=== PATIENT | male | born 1935 ===

== ENCOUNTER 2020-09-28 19:32 | Inpatient (IN) ==
[2020-09-28] MEDS ORDERED: ONDANSETRON 4 MG/2 ML VIAL IV PRN (21:56)
[2020-09-28] MEDS ORDERED: MORPHINE 2 MG/1 ML SYRINGE IV PRN (21:56)
[2020-09-28] MEDS ORDERED: ACETAMINOPHEN 325 MG TABLET PO PRN (21:56)
[2020-09-28] MEDS: LACTATED RINGERS 1,000 ML IV SCH (23:00)
[2020-09-29] MEDS: PIPERACILLIN/TAZOBACTAM 3,375 MG in SODIUM CHLORIDE 0.9% 100 ML IV SCH ×3 (02:59→17:11)
[2020-09-29 07:45] LABS: Basophils # 0.1 10*3/uL (0.0-0.2); Basophils % 0.3 % (0.0-0.8); Eosinophils # 0.2 10*3/uL (0.0-0.87); Eosinophils % 1.3 % (0.00-10.9); Hematocrit 38.4 VOL% (42.0-52.0); Hemoglobin 12.7 GM/DL (14.0-18.0); Immature Granulocytes % 0.8 %; Immature Granulocytes Absolute 0.12 #; Mean Corpuscular HGB Conc 33.1 GM/DL (32-36); Mean Corpuscular Volume 93.4 FL (87-102); Mean Platelet Volume 10.1 FL (9.6-12.0); Monocytes % 9.1 % (1.7-12.7); Neutrophils % 82.5 % (38.7-73.9); Platelet Count 292 T/CUMM (130-400); Red Blood Count 4.11 MC/CUMM (3.8-5.5); White Blood Count 15.7 T/CUMM (4-12)
[2020-09-29 08:11] LABS: Calcium 8.2 MG/DL (8.5-10.1); Osmolality,Calculated 280.3 MOS/KG (273-304); Potassium 2.9 MMOL/L (3.5-5.1)
[2020-09-29] MEDS ORDERED: MAGNESIUM CITRATE 300 ML BOTTLE PO ONE (08:15)
[2020-09-29] MEDS ORDERED: BISACODYL 10 MG SUPP RECTAL ONE (08:15)
[2020-09-29] MEDS: LACTATED RINGERS 1,000 ML IV SCH ×2 (10:08→14:02)
[2020-09-29] MEDS: PANTOPRAZOLE 40 MG TABLET PO SCH (10:22)
[2020-09-29] MEDS: POTASSIUM CHLORIDE RIDER 10 MEQ/100 ML PREMIX IV SCH ×5 (10:50→21:10)
[2020-09-29] MEDS ORDERED: POTASSIUM CHLORIDE RIDER 10 MEQ/100 ML PREMIX IV SCH (20:00)
[2020-09-30] MEDS: COLLAGENASE OINT 30 GM TUBE TOP SCH ×2 (01:31→09:00)
[2020-09-30] MEDS: PIPERACILLIN/TAZOBACTAM 3,375 MG in SODIUM CHLORIDE 0.9% 100 ML IV SCH ×3 (01:31→18:32)
[2020-09-30 07:35] LABS: Basophils % 0.3 % (0.0-0.8); Eosinophils # 0.2 10*3/uL (0.0-0.87); Eosinophils % 1.7 % (0.00-10.9); Hematocrit 36.4 VOL% (42.0-52.0); Hemoglobin 11.5 GM/DL (14.0-18.0); Immature Granulocytes % 0.6 %; Immature Granulocytes Absolute 0.09 #; Lymphocytes # 0.8 10*3/uL (1.4-4.0); Lymphocytes % 5.8 % (21.2-54.2); Mean Corpuscular HGB Conc 31.6 GM/DL (32-36); Mean Corpuscular Volume 94.5 FL (87-102); Mean Platelet Volume 10.1 FL (9.6-12.0); Monocytes % 8.5 % (1.7-12.7); Neutrophils % 83.1 % (38.7-73.9); Platelet Count 297 T/CUMM (130-400); Red Blood Count 3.85 MC/CUMM (3.8-5.5); Red Cell Distribution Width 13.2 % (9.3-17.3); White Blood Count 13.9 T/CUMM (4-12)
[2020-09-30 07:54] LABS: Calcium 8.1 MG/DL (8.5-10.1); Osmolality,Calculated 276.5 MOS/KG (273-304)
[2020-09-30] MEDS: LACTATED RINGERS 1,000 ML IV SCH ×4 (08:00→23:50)
[2020-09-30] MEDS ORDERED: MORPHINE 2 MG/1 ML SYRINGE IV PRN ×2 (08:47)
[2020-09-30] MEDS ORDERED: POTASSIUM CHLORIDE 20 MEQ TABLET PO ONE (09:00)
[2020-09-30] MEDS: PANTOPRAZOLE 40 MG TABLET PO SCH (09:30)
[2020-10-01] MEDS: PIPERACILLIN/TAZOBACTAM 3,375 MG in SODIUM CHLORIDE 0.9% 100 ML IV SCH ×3 (01:16→17:10)
[2020-10-01 06:10] LABS: Basophils # 0.1 10*3/uL (0.0-0.2); Basophils % 0.5 % (0.0-0.8); Eosinophils # 0.4 10*3/uL (0.0-0.87); Eosinophils % 3.6 % (0.00-10.9); Hematocrit 38.8 VOL% (42.0-52.0); Hemoglobin 12.3 GM/DL (14.0-18.0); Immature Granulocytes % 0.8 %; Immature Granulocytes Absolute 0.08 #; Lymphocytes % 10.2 % (21.2-54.2); Mean Corpuscular HGB Conc 31.7 GM/DL (32-36); Mean Corpuscular Volume 94.4 FL (87-102); Mean Platelet Volume 10.1 FL (9.6-12.0); Monocytes % 7.4 % (1.7-12.7); Neutrophils % 77.5 % (38.7-73.9); Platelet Count 294 T/CUMM (130-400); Red Blood Count 4.11 MC/CUMM (3.8-5.5)
[2020-10-01 06:29] LABS: Calcium 8.2 MG/DL (8.5-10.1); Osmolality,Calculated 281.1 MOS/KG (273-304); Potassium 3.3 MMOL/L (3.5-5.1)
[2020-10-01] MEDS: POLYVINYL ALCOHOL 1.4% OPH SOLN 15 ML BOTTLE BOTH EYES PRN (07:07)
[2020-10-01] MEDS: LACTATED RINGERS 1,000 ML IV SCH (07:13)
[2020-10-01] MEDS: COLLAGENASE OINT 30 GM TUBE TOP SCH (08:48)
[2020-10-01] MEDS: PANTOPRAZOLE 40 MG TABLET PO SCH (08:48)
[2020-10-02] MEDS: PIPERACILLIN/TAZOBACTAM 3,375 MG in SODIUM CHLORIDE 0.9% 100 ML IV SCH ×3 (01:17→16:52)
[2020-10-02 07:23] LABS: Basophils % 0.3 % (0.0-0.8); Eosinophils # 0.5 10*3/uL (0.0-0.87); Eosinophils % 6.4 % (0.00-10.9); Hematocrit 38.9 VOL% (42.0-52.0); Hemoglobin 12.3 GM/DL (14.0-18.0); Immature Granulocytes Absolute 0.07 #; Lymphocytes # 0.9 10*3/uL (1.4-4.0); Lymphocytes % 12.8 % (21.2-54.2); Mean Corpuscular HGB Conc 31.6 GM/DL (32-36); Mean Corpuscular Volume 94.2 FL (87-102); Mean Platelet Volume 9.7 FL (9.6-12.0); Monocytes % 6.5 % (1.7-12.7); Platelet Count 330 T/CUMM (130-400); Red Blood Count 4.13 MC/CUMM (3.8-5.5); White Blood Count 7.2 T/CUMM (4-12)
[2020-10-02 07:41] LABS: Calcium 7.9 MG/DL (8.5-10.1); Osmolality,Calculated 283.8 MOS/KG (273-304); Potassium 3.1 MMOL/L (3.5-5.1)
[2020-10-02] MEDS: PANTOPRAZOLE 40 MG TABLET PO SCH (09:04)
[2020-10-02] MEDS: POLYVINYL ALCOHOL 1.4% OPH SOLN 15 ML BOTTLE BOTH EYES PRN (09:06)
[2020-10-02] MEDS: LACTATED RINGERS 1,000 ML IV SCH ×3 (09:06→15:31)
[2020-10-02] MEDS ORDERED: POTASSIUM CHLORIDE 20 MEQ TABLET PO ONE (09:45)
[2020-10-02] MEDS: COLLAGENASE OINT 30 GM TUBE TOP SCH (11:21)
[2020-10-03] MEDS: PIPERACILLIN/TAZOBACTAM 3,375 MG in SODIUM CHLORIDE 0.9% 100 ML IV SCH ×3 (01:24→16:01)
[2020-10-03] MEDS: LACTATED RINGERS 1,000 ML IV SCH ×4 (01:26→23:23)
[2020-10-03 06:28] LABS: Calcium 8.2 MG/DL (8.5-10.1); Osmolality,Calculated 278.3 MOS/KG (273-304); Potassium 3.3 MMOL/L (3.5-5.1)
[2020-10-03] MEDS: COLLAGENASE OINT 30 GM TUBE TOP SCH (09:40)
[2020-10-03] MEDS: PANTOPRAZOLE 40 MG TABLET PO SCH (09:40)
[2020-10-03] MEDS: POTASSIUM CHLORIDE 20 MEQ TABLET PO PRN ×3 (11:56→16:00)
[2020-10-03] MEDS: POLYVINYL ALCOHOL 1.4% OPH SOLN 15 ML BOTTLE BOTH EYES PRN (16:00)
[2020-10-04] MEDS: PIPERACILLIN/TAZOBACTAM 3,375 MG in SODIUM CHLORIDE 0.9% 100 ML IV SCH ×2 (01:28→10:34)
[2020-10-04] MEDS: POTASSIUM CHLORIDE 20 MEQ TABLET PO PRN (09:27)
[2020-10-04] MEDS: PANTOPRAZOLE 40 MG TABLET PO SCH (09:27)
[2020-10-04] MEDS: COLLAGENASE OINT 30 GM TUBE TOP SCH (09:27)
[2020-10-04] MEDS ORDERED: AMOXICILLIN/CLAV 875 MG TABLET PO SCH (09:30)
[2020-10-04] MEDS: LACTATED RINGERS 1,000 ML IV SCH (10:34)
[2020-10-04 11:37] VITALS: BP 122/75
[2020-10-04] MEDS ORDERED: CEFUROXIME 500 MG TABLET PO SCH (21:00)
== END 2020-10-04 15:07 | disposition home or self-care (01) | DRG 373 ==
LOC: EDBD → EDUNIT# → N.ED 19:32 → N.EDINP 21:56 → N.3E 09-29 01:15
PROVIDERS: ADMIT Student in an Organized Health Care Education/Training Program; ATTEND Student in an Organized Health Care Education/Training Program